=== PATIENT | female | born 1930 | race Caucasian/White ===

== ENCOUNTER 2016-10-25 08:41 | Inpatient (IN) | payer OTHER ==
[~2016-10-25] VITALS: Ht 160 cm; Wt 65.6 kg
[~2016-10-25 08:41] MED LIST: ALDACTONE25 MG PO; ASPIR 8181 MG PO; CARVEDILOL12.5 M1 PO; CIPRO500 MG PO; FLA250 PO; FUROSEMIDE20 MG PO; LINZESS145 MC1 PO; LOSARTAN POTASS25 M1 PO; METOCLOPRAMIDE10 MG PO; MIRAPEX0.25 MG PO; PRAVACHOL10 MG PO; VICODIN1 TA1 PO
[2016-10-25] MEDS ORDERED: PRADAXA150 M1 PO (09:09)
[2016-10-25 09:39] LABS: CALCIUM 9.1 mg/dL (8.5-10.1); CARBON DIOXIDE 28.7 mmol/L (21-32); CHLORIDE SERUM 105 mmol/L (98-107); GLUCOSE SERUM 145 mg/dL (74-106); POTASSIUM SERUM 4.8 mmol/L (3.5-5.1); SODIUM SERUM 141 mmol/L (136-145)
[2016-10-25 09:44] LABS: ALBUMIN 3.4 g/dL (3.4-5.0); ALKALINE PHOSPHATASE 72 U/L (46-116); ALT/SGPT 20 U/L (14-59); AST/SGOT 22 U/L (15-37); BILIRUBIN TOTAL 0.6 mg/dL (0.20-1.00); TOTAL PROTEIN, SERUM 6.8 g/dL (6.4-8.2)
[2016-10-25 09:56] LABS: BASOPHIL % 0.1 % (0-2); PLATELET COUNT 185 x10^3mcL (130-400); RED CELL DISTRIBUTION WIDTH 13.8 % (11.5-14.5)
[2016-10-25 11:56] VITALS: BP 122/55
[2016-10-25 12:19] LABS: MAGNESIUM 2.1 mg/dL (1.8-2.4); PHOSPHOROUS 3.8 mg/dL (2.5-4.9)
[2016-10-25 12:25] LABS: CHOLESTEROL/HDL RATIO 2.8
[2016-10-25 12:36] LABS: FREE T4 1.43 ng/dL (0.76-1.46); FREE THYROXINE INDEX 3.1 ug/dL (1.4-4.5); T4(THYROXINE) 8.3 ug/dL (4.7-13.3)
[2016-10-25 12:39] LABS: T3 TOTAL 0.74 ng/mL
[2016-10-25 15:32] LABS: BASOPHIL % 0.3 % (0-2); PLATELET COUNT 180 x10^3mcL (130-400); RED CELL DISTRIBUTION WIDTH 13.9 % (11.5-14.5)
[2016-10-25 16:36] VITALS: BP 113/47
[2016-10-25 21:38] VITALS: BP 149/53
[2016-10-26 00:39] LABS: BASOPHIL % 0.3 % (0-2); PLATELET COUNT 179 x10^3mcL (130-400); RED CELL DISTRIBUTION WIDTH 13.9 % (11.5-14.5)
[2016-10-26 06:00] VITALS: BP 169/47
[2016-10-26 06:07] LABS: BASOPHIL % 0.2 % (0-2); PLATELET COUNT 173 x10^3mcL (130-400); RED CELL DISTRIBUTION WIDTH 13.9 % (11.5-14.5)
[2016-10-26 07:04] VITALS: BP 119/49
[2016-10-26 07:08] LABS: CALCIUM 8.4 mg/dL (8.5-10.1); CARBON DIOXIDE 22.5 mmol/L (21-32); CHLORIDE SERUM 109 mmol/L (98-107); CREATININE SERUM 1.6 mg/dL (0.6-1.0); GLUCOSE SERUM 107 mg/dL (74-106); MAGNESIUM 2.1 mg/dL (1.8-2.4); PHOSPHOROUS 3.4 mg/dL (2.5-4.9); POTASSIUM SERUM 4.7 mmol/L (3.5-5.1); SODIUM SERUM 142 mmol/L (136-145)
[2016-10-26 08:37] LABS: BASOPHIL % 0.3 % (0-2); PLATELET COUNT 176 x10^3mcL (130-400); RED CELL DISTRIBUTION WIDTH 14.2 % (11.5-14.5)
[2016-10-26 09:20] VITALS: BP 104/43
[2016-10-26 13:22] VITALS: BP 117/49
[2016-10-26 16:44] VITALS: BP 115/44
[2016-10-26 21:20] VITALS: BP 104/57
[2016-10-27 05:44] VITALS: BP 95/59
[2016-10-27 06:23] LABS: CALCIUM 8.3 mg/dL (8.5-10.1); CARBON DIOXIDE 22.4 mmol/L (21-32); CHLORIDE SERUM 111 mmol/L (98-107); CREATININE SERUM 1.5 mg/dL (0.6-1.0); GLUCOSE SERUM 97 mg/dL (74-106); MAGNESIUM 1.9 mg/dL (1.8-2.4); PHOSPHOROUS 3.2 mg/dL (2.5-4.9); POTASSIUM SERUM 4.3 mmol/L (3.5-5.1); SODIUM SERUM 143 mmol/L (136-145)
[2016-10-27 07:11] LABS: BASOPHIL % 0.3 % (0-2); PLATELET COUNT 150 x10^3mcL (130-400); RED CELL DISTRIBUTION WIDTH 13.8 % (11.5-14.5)
[2016-10-27 09:42] VITALS: BP 119/44
[2016-10-27 13:55] VITALS: BP 104/39
[2016-10-27 17:00] VITALS: BP 97/42
[2016-10-27 20:05] VITALS: BP 102/44
[2016-10-28 05:46] VITALS: BP 117/45
[2016-10-28 06:11] LABS: CALCIUM 7.9 mg/dL (8.5-10.1); CARBON DIOXIDE 21.3 mmol/L (21-32); CHLORIDE SERUM 112 mmol/L (98-107); CREATININE SERUM 1.5 mg/dL (0.6-1.0); GLUCOSE SERUM 107 mg/dL (74-106); MAGNESIUM 1.7 mg/dL (1.8-2.4); PHOSPHOROUS 3.1 mg/dL (2.5-4.9); POTASSIUM SERUM 4.1 mmol/L (3.5-5.1); SODIUM SERUM 144 mmol/L (136-145)
[2016-10-28 07:01] LABS: BASOPHIL % 0.2 % (0-2); PLATELET COUNT 155 x10^3mcL (130-400); RED CELL DISTRIBUTION WIDTH 14.4 % (11.5-14.5)
[2016-10-28 09:58] VITALS: BP 106/38
[2016-10-28] MEDS ORDERED: LAC PO (11:15)
[2016-10-28] MEDS ORDERED: FLA500 PO (11:16)
[2016-10-28] MEDS ORDERED: CIPROFLOXACIN500 MG PO (11:16)
[2016-10-28 12:00] VITALS: BP 93/40
[2016-10-28 13:44] VITALS: BP 99/35
[2016-10-28 13:53] VITALS: BP 99/35
== END 2016-10-28 14:57 | disposition home or self-care (01) | DRG 377 ==
LOC: ED 08:41 → DU 10:30
PROVIDERS: Family Medicine; Internal Medicine; ADMIT Family Medicine
PROC: 0W3P8ZZ Control Bleeding in Gastrointestinal Tract, Via Natural or Artificial Opening Endoscopic (ICD-10-PCS; principal; 2016-10-26 09:00)
DX: K55.21 Angiodysplasia of colon with hemorrhage (principal); N17.0 Acute kidney failure with tubular necrosis; I50.43 Acute on chronic combined systolic (congestive) and diastolic (congestive) heart failure; D62 Acute posthemorrhagic anemia; I11.0 Hypertensive heart disease with heart failure; K21.9 Gastro-esophageal reflux disease without esophagitis; K57.30 Diverticulosis of large intestine without perforation or abscess without bleeding; M51.36 Other intervertebral disc degeneration, lumbar region; G89.29 Other chronic pain; Z68.25 Body mass index [BMI] 25.0-25.9, adult; Z95.810 Presence of automatic (implantable) cardiac defibrillator
CPT/HCPCS: 45378; 83880; 84439; C9113; J1200; J1610; J1956; J2250; J2310; J3010; J3475; J3490; J7030; Q0092

== ENCOUNTER 2016-11-04 03:00 | Emergency (ER) | payer OTHER ==
[~2016-11-04 03:00] MED LIST changes: +CIPROFLOXACIN500 MG PO; +FLA500 PO; +LAC PO; +PRADAXA150 M1 PO
[2016-11-04 03:54] LABS: BASOPHIL % 1.8 % (0-2); PLATELET COUNT 275 x10^3mcL (130-400); RED CELL DISTRIBUTION WIDTH 13.5 % (11.5-14.5)
[2016-11-04 04:03] LABS: CALCIUM 8.2 mg/dL (8.5-10.1); CARBON DIOXIDE 24.5 mmol/L (21-32); CHLORIDE SERUM 98 mmol/L (98-107); CREATININE SERUM 1.5 mg/dL (0.6-1.0); GLUCOSE SERUM 95 mg/dL (74-106); POTASSIUM SERUM 4.7 mmol/L (3.5-5.1); SODIUM SERUM 130 mmol/L (136-145)
[2016-11-04 04:17] LABS: CK-MB 0.8 ng/mL (0-3.6)
[2016-11-04 04:19] LABS: ALKALINE PHOSPHATASE 46 U/L (46-116); ALT/SGPT 16 U/L (14-59); AST/SGOT 25 U/L (15-37); BILIRUBIN TOTAL 0.4 mg/dL (0.20-1.00)
[2016-11-04 05:53] LABS: MAGNESIUM 1.6 mg/dL (1.8-2.4); PHOSPHOROUS 3.1 mg/dL (2.5-4.9)
[2016-11-04 05:54] LABS: CHOLESTEROL/HDL RATIO 1.7
[2016-11-04 06:01] LABS: FREE T4 1.58 ng/dL (0.76-1.46); FREE THYROXINE INDEX 3.3 ug/dL (1.4-4.5); T4(THYROXINE) 8.8 ug/dL (4.7-13.3)
[2016-11-04 06:11] LABS: T3 TOTAL 0.9 ng/mL
[2016-11-04 07:03] LABS: microscopic required? YES; urine erythrocyte 1+ (NEGATIVE)
[2016-11-04 14:30] VITALS: BP 137/62
== END 2016-11-04 14:30 | disposition home or self-care (01) ==
LOC: ED 03:00
PROVIDERS: Emergency Medicine; Family Medicine
DX: R07.89 Other chest pain (principal); I11.0 Hypertensive heart disease with heart failure; I50.9 Heart failure, unspecified
CPT/HCPCS: 83880; 84439; J1940; J7030

== ENCOUNTER 2016-11-09 04:55 | Emergency (ER) | payer OTHER ==
[2016-11-09 07:28] LABS: BASOPHIL % 0.2 % (0-2); PLATELET COUNT 321 x10^3mcL (130-400); RED CELL DISTRIBUTION WIDTH 14.2 % (11.5-14.5)
[2016-11-09 07:48] LABS: CALCIUM 8.6 mg/dL (8.5-10.1); CHLORIDE SERUM 91 mmol/L (98-107); CREATININE SERUM 1.4 mg/dL (0.6-1.0); GLUCOSE SERUM 121 mg/dL (74-106); POTASSIUM SERUM 4.1 mmol/L (3.5-5.1); SODIUM SERUM 127 mmol/L (136-145)
[2016-11-09 07:59] LABS: ALBUMIN 3.5 g/dL (3.4-5.0); ALKALINE PHOSPHATASE 56 U/L (46-116); ALT/SGPT 17 U/L (14-59); AST/SGOT 25 U/L (15-37); BILIRUBIN TOTAL 0.5 mg/dL (0.20-1.00)
[2016-11-09 08:04] LABS: CK-MB 1.3 ng/mL (0-3.6)
[2016-11-09 08:19] LABS: microscopic required? YES; urine erythrocyte 2+ (NEGATIVE)
[2016-11-09] MEDS ORDERED: PRA10 PO (10:14)
[2016-11-09] MEDS ORDERED: CARVEDILOL6.25 M1 PO (10:14)
[2016-11-09] MEDS ORDERED: LOSARTAN POTASS25 M1 PO (10:15)
[2016-11-09] MEDS ORDERED: PRADAXA150 M1 PO (10:15)
[2016-11-09] MEDS ORDERED: FUROSEMIDE20 MG PO (10:16)
[2016-11-09] MEDS ORDERED: VICODIN HP1 TA1 PO (10:16)
[2016-11-09] MEDS ORDERED: ALDACTONE25 MG PO (10:17)
[2016-11-09] MEDS ORDERED: MIRAPEX0.25 MG PO (10:17)
[2016-11-09 11:04] LABS: MAGNESIUM 1.6 mg/dL (1.8-2.4); PHOSPHOROUS 3.5 mg/dL (2.5-4.9)
[2016-11-09 11:05] LABS: CHOLESTEROL/HDL RATIO 1.9
[2016-11-09 11:13] LABS: FREE T4 1.99 ng/dL (0.76-1.46); FREE THYROXINE INDEX 4.8 ug/dL (1.4-4.5); T4(THYROXINE) 12.6 ug/dL (4.7-13.3)
[2016-11-09 11:37] LABS: T3 TOTAL 1.04 ng/mL
[2016-11-09 11:49] LABS: AMPHETAMINE QUAL UR NONE DETECTED (NEG <=1000)
[2016-11-09 18:38] LABS: PLATELET COUNT 287 x10^3mcL (130-400); RED CELL DISTRIBUTION WIDTH 13.4 % (11.5-14.5)
[2016-11-09 18:45] LABS: BASOPHIL % 2.2 % (0-2)
[2016-11-09 18:53] LABS: CALCIUM 8.1 mg/dL (8.5-10.1); CHLORIDE SERUM 95 mmol/L (98-107); CREATININE SERUM 1.4 mg/dL (0.6-1.0); GLUCOSE SERUM 121 mg/dL (74-106); MAGNESIUM 2.1 mg/dL (1.8-2.4); PHOSPHOROUS 3.4 mg/dL (2.5-4.9); POTASSIUM SERUM 4.4 mmol/L (3.5-5.1); SODIUM SERUM 129 mmol/L (136-145)
[2016-11-10 06:08] VITALS: BP 102/50
== END 2016-11-10 06:08 | disposition home or self-care (01) ==
LOC: ED 04:55
PROVIDERS: Emergency Medicine; Family Medicine
DX: E87.1 Hypo-osmolality and hyponatremia (principal); R07.89 Other chest pain; I11.0 Hypertensive heart disease with heart failure; I50.9 Heart failure, unspecified; Z91.041 Radiographic dye allergy status; Z79.891 Long term (current) use of opiate analgesic; Z79.899 Other long term (current) drug therapy
CPT/HCPCS: 36600; 83880; 84439; J1940; J2405; J3475; J3490; J7030; J7620; Q0092

== ENCOUNTER 2016-11-14 21:10 | Inpatient (IN) | payer OTHER ==
[~2016-11-14] VITALS: Ht 160 cm; Wt 72.8 kg
[~2016-11-14 21:10] MED LIST changes: +CARVEDILOL6.25 M1 PO; +PRA10 PO; +VICODIN HP1 TA1 PO
[2016-11-14 22:19] LABS: BASOPHIL % 0.2 % (0-2); PLATELET COUNT 308 x10^3mcL (130-400)
[2016-11-14 22:23] LABS: RED CELL DISTRIBUTION WIDTH 15.2 % (11.5-14.5)
[2016-11-14 22:51] LABS: AMYLASE 85 U/L (25-115); LIPASE 261 IU/L (73-393)
[2016-11-14 22:58] LABS: ALKALINE PHOSPHATASE 57 U/L (46-116); ALT/SGPT 18 U/L (14-59); AST/SGOT 25 U/L (15-37); BILIRUBIN TOTAL 0.46 mg/dL (0.20-1.00); CALCIUM 8.4 mg/dL (8.5-10.1); CARBON DIOXIDE 26.5 mmol/L (21-32); CHLORIDE SERUM 90 mmol/L (98-107); CREATININE SERUM 1.4 mg/dL (0.6-1.0); GLUCOSE SERUM 89 mg/dL (74-106); POTASSIUM SERUM 4.6 mmol/L (3.5-5.1); TOTAL PROTEIN, SERUM 6.6 g/dL (6.4-8.2)
[2016-11-14 23:00] LABS: SODIUM SERUM 119 mmol/L (136-145)
[2016-11-15] VITALS (7 sets, daily range): BP systolic 105–141; BP diastolic 45–84; Ht 160 cm; Wt 72.8 kg
[2016-11-15 00:20] LABS: MAGNESIUM 1.7 mg/dL (1.8-2.4); PHOSPHOROUS 3.9 mg/dL (2.5-4.9)
[2016-11-15 01:42] LABS: FREE T4 1.76 ng/dL (0.76-1.46); FREE THYROXINE INDEX 3.8 ug/dL (1.4-4.5); T4(THYROXINE) 10.1 ug/dL (4.7-13.3)
[2016-11-15 02:43] LABS: T3 TOTAL 1.03 ng/mL
[2016-11-15 09:18] LABS: BASOPHIL % 0.1 % (0-2); PLATELET COUNT 316 x10^3mcL (130-400)
[2016-11-15 09:33] LABS: RED CELL DISTRIBUTION WIDTH 14.9 % (11.5-14.5)
[2016-11-15 09:46] LABS: CALCIUM 8.6 mg/dL (8.5-10.1); CARBON DIOXIDE 27.6 mmol/L (21-32); CHLORIDE SERUM 91 mmol/L (98-107); CREATININE SERUM 1.4 mg/dL (0.6-1.0); GLUCOSE SERUM 163 mg/dL (74-106); MAGNESIUM 2.3 mg/dL (1.8-2.4); PHOSPHOROUS 3.5 mg/dL (2.5-4.9); POTASSIUM SERUM 4.2 mmol/L (3.5-5.1); SODIUM SERUM 126 mmol/L (136-145)
[2016-11-16 05:25] VITALS: BP 127/57
[2016-11-16 06:31] LABS: BASOPHIL % 0.3 % (0-2); PLATELET COUNT 261 x10^3mcL (130-400)
[2016-11-16 06:44] LABS: RED CELL DISTRIBUTION WIDTH 15.5 % (11.5-14.5)
[2016-11-16 06:52] LABS: CALCIUM 7.9 mg/dL (8.5-10.1); CARBON DIOXIDE 23.1 mmol/L (21-32); CHLORIDE SERUM 98 mmol/L (98-107); CREATININE SERUM 1.2 mg/dL (0.6-1.0); GLUCOSE SERUM 92 mg/dL (74-106); PHOSPHOROUS 3.3 mg/dL (2.5-4.9); POTASSIUM SERUM 4.6 mmol/L (3.5-5.1); SODIUM SERUM 131 mmol/L (136-145)
[2016-11-16 07:07] LABS: microscopic required? YES; urine erythrocyte 2+ (NEGATIVE)
[2016-11-16 09:38] VITALS: BP 102/42
[2016-11-16 13:54] VITALS: BP 116/51
[2016-11-16 17:23] VITALS: BP 96/60
[2016-11-16 20:54] VITALS: BP 137/55
[2016-11-17 02:46] VITALS: BP 125/40
[2016-11-17 05:08] VITALS: BP 139/66
[2016-11-17 06:00] LABS: BASOPHIL % 0.2 % (0-2); PLATELET COUNT 256 x10^3mcL (130-400)
[2016-11-17 06:01] LABS: CALCIUM 8.2 mg/dL (8.5-10.1); CARBON DIOXIDE 24.4 mmol/L (21-32); CHLORIDE SERUM 95 mmol/L (98-107); CREATININE SERUM 1.1 mg/dL (0.6-1.0); GLUCOSE SERUM 95 mg/dL (74-106); PHOSPHOROUS 3.4 mg/dL (2.5-4.9); POTASSIUM SERUM 4.8 mmol/L (3.5-5.1); SODIUM SERUM 127 mmol/L (136-145)
[2016-11-17 06:02] LABS: RED CELL DISTRIBUTION WIDTH 15.9 % (11.5-14.5)
[2016-11-17 08:59] LABS: rbc morphology (normal/abnorm) ABNORMAL (NORMAL)
[2016-11-17 09:42] VITALS: BP 120/79
[2016-11-17 13:53] VITALS: BP 109/49
[2016-11-17 14:34] LABS: RED BLOOD CELLS 2.4 M/mm3 (4.10-5.10)
[2016-11-17 15:05] LABS: TOTAL IRON BINDING CAPACITY 315 ug/dL (250-450)
[2016-11-17 15:16] LABS: IRON 15 ug/dL (50-170)
[2016-11-17 17:47] VITALS: BP 113/56
[2016-11-17 18:31] LABS: PLATELET COUNT 265 x10^3mcL (130-400)
[2016-11-17 18:33] LABS: RED CELL DISTRIBUTION WIDTH 16.1 % (11.5-14.5)
[2016-11-17 21:50] VITALS: BP 121/62
[2016-11-18 06:02] VITALS: BP 114/66
[2016-11-18 06:36] LABS: CALCIUM 8.1 mg/dL (8.5-10.1); CARBON DIOXIDE 23.7 mmol/L (21-32); CHLORIDE SERUM 96 mmol/L (98-107); GLUCOSE SERUM 90 mg/dL (74-106); MAGNESIUM 1.8 mg/dL (1.8-2.4); PHOSPHOROUS 3.5 mg/dL (2.5-4.9); SODIUM SERUM 128 mmol/L (136-145)
[2016-11-18 06:51] LABS: BASOPHIL % 0.4 % (0-2); PLATELET COUNT 244 x10^3mcL (130-400)
[2016-11-18 07:46] LABS: RED CELL DISTRIBUTION WIDTH 15.6 % (11.5-14.5)
[2016-11-18 09:10] VITALS: BP 139/61
[2016-11-18 09:31] LABS: rbc morphology (normal/abnorm) ABNORMAL (NORMAL)
[2016-11-18 12:56] VITALS: BP 139/61
[2016-11-18 16:48] VITALS: BP 139/61
[2016-11-18 17:24] VITALS: BP 124/53
== END 2016-11-18 20:00 | DRG 643 ==
LOC: ED 21:10 → DU 23:40 → MU 11-18 06:59
PROVIDERS: Emergency Medicine; ADMIT Family Medicine
DX: E22.2 Syndrome of inappropriate secretion of antidiuretic hormone (principal); G93.41 Metabolic encephalopathy; I50.43 Acute on chronic combined systolic (congestive) and diastolic (congestive) heart failure; N17.0 Acute kidney failure with tubular necrosis; E44.0 Moderate protein-calorie malnutrition; I42.0 Dilated cardiomyopathy; I10 Essential (primary) hypertension; E03.9 Hypothyroidism, unspecified; D64.9 Anemia, unspecified; Z68.28 Body mass index [BMI] 28.0-28.9, adult; Z95.810 Presence of automatic (implantable) cardiac defibrillator; Z66 Do not resuscitate
CPT/HCPCS: 83880; 84439; 97110-GP; 97116-GP; 97530-GP; 97542-GP; J1940; J2270; J2405; J2916; J3475; J7030; J7040; J7620; Q0092; Q0163; Q0169

== ENCOUNTER 2016-12-12 00:03 | Inpatient (IN) | payer OTHER ==
[2016-12-12] VITALS (7 sets, daily range): BP systolic 104–126; BP diastolic 42–75
[~2016-12-12] VITALS: Ht 160 cm; Wt 60.8 kg
[2016-12-12 00:44] LABS: BASOPHIL % 0.3 % (0-2); PLATELET COUNT 193 x10^3mcL (130-400)
[2016-12-12 00:54] LABS: ALKALINE PHOSPHATASE 79 U/L (46-116); ALT/SGPT 43 U/L (14-59); AST/SGOT 45 U/L (15-37); BILIRUBIN TOTAL 0.9 mg/dL (0.20-1.00); CARBON DIOXIDE 30.6 mmol/L (21-32); CHLORIDE SERUM 95 mmol/L (98-107); GLUCOSE SERUM 124 mg/dL (74-106); LIPASE 273 IU/L (73-393); POTASSIUM SERUM 4.8 mmol/L (3.5-5.1); SODIUM SERUM 132 mmol/L (136-145)
[2016-12-12 00:55] LABS: ALBUMIN 3.1 g/dL (3.4-5.0)
[2016-12-12 00:57] LABS: RED CELL DISTRIBUTION WIDTH 17.5 % (11.5-14.5)
[2016-12-12 04:51] LABS: MAGNESIUM 2.1 mg/dL (1.8-2.4); PHOSPHOROUS 4.5 mg/dL (2.5-4.9)
[2016-12-12 04:59] LABS: T3 TOTAL 0.86 ng/mL
[2016-12-12 05:02] LABS: FREE T4 1.36 ng/dL (0.76-1.46); FREE THYROXINE INDEX 3.8 ug/dL (1.4-4.5); T4(THYROXINE) 9.2 ug/dL (4.7-13.3)
[2016-12-12 05:04] LABS: CHOLESTEROL/HDL RATIO 3.1
[2016-12-12 14:51] LABS: microscopic required? YES; urine erythrocyte 3+ (NEGATIVE)
[2016-12-13 05:31] VITALS: BP 124/52
[2016-12-13 06:04] LABS: BASOPHIL % 0.4 % (0-2); PLATELET COUNT 168 x10^3mcL (130-400)
[2016-12-13 06:33] LABS: CALCIUM 8.3 mg/dL (8.5-10.1); CARBON DIOXIDE 23.4 mmol/L (21-32); CHLORIDE SERUM 98 mmol/L (98-107); CREATININE SERUM 1.1 mg/dL (0.6-1.0); GLUCOSE SERUM 80 mg/dL (74-106); POTASSIUM SERUM 4.6 mmol/L (3.5-5.1); SODIUM SERUM 130 mmol/L (136-145)
[2016-12-13 07:30] VITALS: BP 133/59
[2016-12-13 09:50] VITALS: BP 142/56
[2016-12-13 11:14] VITALS: Ht 160 cm; Wt 60.8 kg
[2016-12-13 12:00] VITALS: BP 107/43
[2016-12-13 17:21] VITALS: BP 119/47
[2016-12-13 21:34] VITALS: BP 122/55
[2016-12-14 05:15] VITALS: BP 140/59
[2016-12-14 07:26] LABS: BASOPHIL % 0.3 % (0-2); PLATELET COUNT 169 x10^3mcL (130-400)
[2016-12-14 07:28] LABS: RED CELL DISTRIBUTION WIDTH 16.8 % (11.5-14.5)
[2016-12-14 07:37] LABS: CALCIUM 8.3 mg/dL (8.5-10.1); CARBON DIOXIDE 22.1 mmol/L (21-32); CHLORIDE SERUM 102 mmol/L (98-107); CREATININE SERUM 0.9 mg/dL (0.6-1.0); GLUCOSE SERUM 89 mg/dL (74-106); POTASSIUM SERUM 4.6 mmol/L (3.5-5.1); SODIUM SERUM 133 mmol/L (136-145)
[2016-12-14 09:55] VITALS: BP 109/45
[2016-12-14 13:18] VITALS: BP 112/37
[2016-12-14 13:54] VITALS: BP 111/60
[2016-12-14] MEDS ORDERED: XARELTO15 M1 PO ×2 (16:00→17:01)
[2016-12-14] MEDS ORDERED: LAC PO ×2 (16:02→17:01)
[2016-12-14] MEDS ORDERED: LEVAQUIN750 MG PO (16:05)
== END 2016-12-14 17:30 | disposition home health service (06) | DRG 640 ==
LOC: ED 00:03 → DU 02:50 → MU 12-14 16:32
PROVIDERS: Emergency Medicine; Student in an Organized Health Care Education/Training Program; ADMIT Family Medicine
DX: E86.0 Dehydration (principal); I50.43 Acute on chronic combined systolic (congestive) and diastolic (congestive) heart failure; N17.0 Acute kidney failure with tubular necrosis; N39.0 Urinary tract infection, site not specified; I42.9 Cardiomyopathy, unspecified; E44.0 Moderate protein-calorie malnutrition; E87.1 Hypo-osmolality and hyponatremia; R55 Syncope and collapse; I11.0 Hypertensive heart disease with heart failure; I48.91 Unspecified atrial fibrillation; I08.1 Rheumatic disorders of both mitral and tricuspid valves; D64.9 Anemia, unspecified; K80.20 Calculus of gallbladder without cholecystitis without obstruction; N20.0 Calculus of kidney; K57.30 Diverticulosis of large intestine without perforation or abscess without bleeding; Z68.23 Body mass index [BMI] 23.0-23.9, adult; Z95.0 Presence of cardiac pacemaker; Z79.891 Long term (current) use of opiate analgesic
CPT/HCPCS: 83880; 84439; 97110-GP; J1956; J2405; J3010; J3490; J7030; Q0092; Q0169

== ENCOUNTER 2019-05-28 19:38 | Observation (INO) | payer OTHER ==
[~2019-05-28] VITALS: Ht 160 cm; Wt 64.0 kg
[~2019-05-28 19:38] MED LIST changes: +LEVAQUIN750 MG PO; +XARELTO15 M1 PO
[2019-05-28 19:41] VITALS: Ht 160 cm; Wt 64.0 kg
--- NOTE | 2019-05-28 19:47 | NUR ---
TECH AT BEDSIDE FOR EKG
--- NOTE | 2019-05-28 19:58 | NUR ---
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 PT STS SHE WAS GETTING SUDDEN SHOCKS TO HER CHEST APPROX 8 TIMES AND HAS NOT HAD ANY SINCE EMS WAS ON SCENE. PT DENIES CP, SOB AND ANY SYMTPOMS AT THIS TIME. PT IS AWAKE AND ALERT. ORIENTED X4. [place]. AGE APPROPRIATE RESPONSES. AMBULATED FROM [place] TO BED WITH SLOW STEADY GAIT. PT CONNECTED TO FULL CM. IV SITE TO LAC NOTED AND INTACT. AWAITING MSE.
--- NOTE | 2019-05-28 20:40 | NUR ---
LAB AT BEDSIDE.
--- NOTE | 2019-05-28 20:57 | NUR ---
[employer] CONTACTED AT THIS TIME REGARDING PACEMAKER INTERROGATION. SPOKE WITH MARIO ALBERTO, TO [employer] FOR INTERROGATION. REP WILL CONTACT WITH FURTHER DETAILS.
--- NOTE | 2019-05-28 21:00 | NUR ---
DR WHITE AWARE OF THE ABOVE NOTE.
--- NOTE | 2019-05-28 21:03 | NUR ---
[facility]OS[facility] [employer] REP TRANSFERRED TO DR WHITE TO SPEAK REGARDING PACEMAKER INTERROGATION.
[2019-05-28 21:10] LABS: CARBON DIOXIDE 28.2 mmol/L (21-32); CHLORIDE SERUM 100 mmol/L (98-107); SODIUM SERUM 138 mmol/L (136-145)
[2019-05-28 21:11] LABS: CALCIUM 8.8 mg/dL (8.5-10.1); CREATININE SERUM 1.7 mg/dL (0.6-1.0); GLUCOSE SERUM 191 mg/dL (74-106)
[2019-05-28 21:13] LABS: BASOPHIL % 0.5 % (0-2); PLATELET COUNT 187 x10^3mcL (130-400); RED CELL DISTRIBUTION WIDTH 12.5 % (11.5-14.5)
--- NOTE | 2019-05-28 22:24 | NUR ---
PT ASSISTED TO RESTROOM. AMBULATORY WITH SLOW STEADY GAIT.
--- NOTE | 2019-05-28 23:42 | NUR ---
REPORT CALLED AND GIVEN TO DARIN DURAN.
[2019-05-29] VITALS (7 sets, daily range): BP systolic 119–136; BP diastolic 50–63
--- NOTE | 2019-05-29 00:50 | NUR ---
RECEIVED PT FROM ER, PT ADMIT FOR CHEST PAIN, PT IS A/O X4, VERBAL RESPONSIVE. [place], LUNG SOUND CLEAR BILATERAL, NO COUGH, NO SOB. PT IS ON TELE 25, 100 PACED. AT HR 70, DENY ANY CHEST PAIN AT THIS MOMENT, BOWEL SOUND PRESENT ALL 4 QUADRANTS, NO DISTENTION, NO TENDER. PEDAL PULSE PRESENT BOTH FEET, NO EDEMA, IV AT RIGHT AC, NO LEAKING, NO INFILRATION. ALL ADLS ASSIST, ALL NEED MET, CALL LIGHT IN REACH, WILL CONTINUE TO MONITOR
--- NOTE | 2019-05-29 01:00 | NUR ---
RECEIVED REPORT FROM DAY SHIFT RN. PATIENT WAS SEEN RESTING IN BED. AMY BOONELLJorgito. DENIES CHEST PAIN/PRESSURE. NO C/O PAIN. TELE #25; 100% PACED. IV TO THE LAC INFUSING 60ML/HR. PATENT AND INTACT. NO REDNESS OR SWELLING NOTED. AMBULATORY WITH A SLOW AND STEADY GAIT. ASSISTED PATIENT TO THE BATHROOM AND BACK TO BED. REPOSITIONED TO COMFORT. WATER GIVEN. COMFORT AND SAFETY MEASURES IN PLACE. BED IS LOCKED AND IN THE LOWEST POSITION. SIDE RAILS UP X2. CALL LIGHT IS WITHIN REACH. WILL CONTINUE TO MONITOR.
--- NOTE | 2019-05-29 03:00 | NUR ---
RESTING IN BED W/ EYES CLOSED. NO DISTRESS NOTED. BREATHING EVEN AND UNLABORED ON ROOM AIR. NO SOB OR RESP DISTRESS NOTED. IVF INFUSING WELL. SAFETY MEASURES IN PLACE. CALL LIGHT IS WITHIN REACH. WILL CONTINUE TO MONITOR.
--- NOTE | 2019-05-29 06:43 | NUR ---
RESTED IN LONG INTERVALS THROUGHOUT THE NIGHT. NO ACUTE CHANGES NOTED. NO DISTRESS NOTED. BREATHING EVEN AND UNLABORED ON ROOM AIR. NO SOB NOTED. IV TO THE RAC, INFUSING WELL. DENIES CHEST PAIN. ALL NEEDS AND CONCERNS ADDRESSED. SAFETY MEASURES IN PLACE. CALL LIGHT IS WITHIN REACH. WILL ENDORSE CARE TO DAY SHIFT RN
--- NOTE | 2019-05-29 07:15 | NUR ---
RECEIVED REPORT FROM FROM NIGHT NURSE PATIENT LYING IN BED A&O X3, PATIENT DENIES ANY CHEST PAIN AT THIS TIME ON TELE MONITOR 25. NO S/S OF ANY REPIRATORY DISTRESS AT THIS TIME. LUNGS CTA BILAT. IV ON LAC PATENT AND INTACT NO REDNESS OR EDEMA. ASSESSMENT COMPLETE AND DOCUMENTED. ALL NEEDS ATTNEDED TO. BED IN LOWEST POSITION CALL LIGHT WITHIN REACH. WILL CONTINUE TO MONITOR.
[2019-05-29 07:24] LABS: BASOPHIL % 0.5 % (0-2); PLATELET COUNT 180 x10^3mcL (130-400); RED CELL DISTRIBUTION WIDTH 13.2 % (11.5-14.5)
--- NOTE | 2019-05-29 08:03 | NUR ---
[employer] AT BEDSIDE TO INTERROGATE PACEMAKER
[2019-05-29 08:24] LABS: CALCIUM 8.5 mg/dL (8.5-10.1); CARBON DIOXIDE 25.5 mmol/L (21-32); CHLORIDE SERUM 103 mmol/L (98-107); CREATININE SERUM 1.6 mg/dL (0.6-1.0); GLUCOSE SERUM 154 mg/dL (74-106); MAGNESIUM 1.9 mg/dL (1.8-2.4); PHOSPHOROUS 3.3 mg/dL (2.5-4.9); POTASSIUM SERUM 4.2 mmol/L (3.5-5.1); SODIUM SERUM 138 mmol/L (136-145)
--- NOTE | 2019-05-29 09:00 | NUR ---
ADMINISTERED INFLUENZA AND PNEUMOVX PER PATIENT REQUEST. PATIENT TOLERATED WELL. NO ADVERSE REACTION NOTED. ALL QUESTIONS AND CONCERNS ADDRESSED AT THIS TIME. BED IN LOWEST POSITION CALL LIGHT WITHIN REACH. WILL CONTINUE TO MONITOR.
--- NOTE | 2019-05-29 11:41 | NUR ---
SPOKE TO DR GREEN ON THE PHONE REGUARDING HOME MEDS PER DR GREEN OK TO CONTINUE HOME MEDS. VERIFIED AND READ BACK. WILL PROCEED WITH ORDER.
--- NOTE | 2019-05-29 12:33 | NUR ---
PATIENT SITTING UP AT THE SIDE OF HER BED EATING LUNCH TOLERATING DIET WELL. PATIENT DENIES ANY CHEST PAIN AT THIS TIME. ALL NEEDS ATTENDED TO. BED IN LOWEST POSITION CALL LIGHT WITHIN REACH. WILL CONTINUE TO MONITOR.
--- NOTE | 2019-05-29 14:32 | NUR ---
PER DR NORMA MIRANDA HEPARIN CONTINUE WITH HOME MED XARELTO READ BACK AND CONFIRMED. WILL CARRY OUT ORDER.
--- NOTE | 2019-05-29 14:34 | NUR ---
PATIENT LYING IN BED DENIES ANY PAIN AT THIS TIME. ALL NEEDS ATTENDED TO PER DR GREEN PT OK TO GO HOME IF CLEARED BY CARDIOLOGY. SAFETY PRECAUTIONS IN PLACE. WILL CONTINUE TO MONITOR.
--- NOTE | 2019-05-29 17:45 | NUR ---
PATIENT SITTING UP IN BED EATING DINNER TOLERATING DIET . DENIES ANY CHEST PAIN AT THIS TIME. ALL NEEDS ATTENDED TO. BED IN LOWEST POSITION CALL LIHT WITHIN REACH.WILL CONTINUE TO MONITOR.
--- NOTE | 2019-05-29 18:59 | NUR ---
PATIENT LYING IN BED DENIES ANY CHEST PAIN AT THIS TIME ON TELE 25. ALL QUESTIONS AND CONCERNS ADDRESSED AT THIS TIME. WILL ENDORSE CARE TO NIGHT NURSE.
--- NOTE | 2019-05-29 19:20 | NUR ---
REPORT RECEIVED FROM DAY SHIFT RN. PATIENT WAS SEEN RESTING COMFORTABLY IN BED. NO DISTRESS NOTED. BREATHING EVEN AND UNLABORED ON ROOM AIR. NO SOB OR RESP DISTRESS NOTED. NO C/O PAIN. DENIES CP/PRESSURE. IV REMVOED BY DAY SHIFT RN. PATIENT WILL BE DISCHARGED HOME. WAITING FOR BOYFRIEND TO COME. COMFORT AND SAFETY MEASURES IN PLACE. BED IS LOCKED AND IN THE LOWEST POSITION. SIDE RAILS UP X2. CALL LIGHT WITHIN REACH. WILL CONTINUE TO MONITOR.
--- NOTE | 2019-05-29 19:50 | NUR ---
PATIENT'S BOYFRIEND ARRIVED TO TAKE PATIENT HOME. DISHARGE EDUCATION GIVEN TO THE PATIENT. PATIENT SIGNED DISCHARGE PAPERWORK. EXPLAINED TO PATIENT TO F/U WITH PCP IN ONE WEEK PER DISCHARGE INSTRUCTIONS. VERBALIZED UNDERSTANDING. PATIENT BREATHING EVEN AND UNLABORED ON ROOM AIR. NO SOB NOTED. DENIES PAIN. NO C/O CHEST PAIN. NO DISTRESS NOTED. TELE REMOVED AND GIVEN TO AIRPORT SHUTTLE DRIVER. PATIENT LEFT W/ ALL BELONGINGS. PATIENT TAKEN DOWN TO LOBBY VIA WHEELCHAIR ACCOMPANIED BY ABDIRIZAK SEGURA.
== END 2019-05-29 19:50 | disposition home or self-care (01) ==
LOC: ED 19:38 → DU 23:15
PROVIDERS: Emergency Medicine; Internal Medicine; ADMIT Internal Medicine Pulmonary Disease
DX: R07.89 Other chest pain (principal); I11.0 Hypertensive heart disease with heart failure; I50.9 Heart failure, unspecified; I48.0 Paroxysmal atrial fibrillation; Z23 Encounter for immunization
CPT/HCPCS: 90658; 90732; G0378; J1644; J7030; J7040; Q0092